=== PATIENT | male | born 1965 | race Caucasian/White ===

== ENCOUNTER 2020-09-09 10:31 | Emergency (ER) | payer OTHER ==
[~2020-09-09] VITALS: Ht 175.3 cm; Wt 104.8 kg
[2020-09-09 10:40] VITALS: BP_SYST 150
--- NOTE | 2020-09-09 10:45 | NUR ---
Patient to ER bed 7 to gown for evaluation. Side rails up. Report given to Karyna JONES.
--- NOTE | 2020-09-09 10:47 | NUR ---
Patient arrived in the ED c/o lower back pain that radiates down the leg that started 2 days ago. Patient denied any recent injury or trauma. Denied any chest pain or shortness of breath. Denied any fevers, chills, nausea or vomiting. Patient is alert and oriented x4, respirations even and unlabored, speaking in full sentences and ambulating with a steady gait. VSS, pain severity 10/10 - Taking Ibuprofen. Informed of the approximate wait time. Instructed to notify ED staff for any changes in condition or worsening of symptoms. Patient verbalized understanding.
--- NOTE | 2020-09-09 10:48 | NUR ---
pt arrives from home w/ 08/31 lower back pain x 2 wks, stabbing, and constant in nature. Pt was seen at a different ER and dc'd home w/ Ibuprofen and a muscle relaxant. pt was told that he needs to have an MRI.
--- NOTE | 2020-09-09 10:52 | NUR ---
ER Dr. Anthony at bedside examining patient.
--- NOTE | 2020-09-09 11:02 | NUR ---
Patient given written and verbal discharge instructions and verbalizes understanding. ER MD discussed with patient the results and treatment provided. Patient in stable condition. ID arm band removed. Rx of [place] given. Patient educated on pain management and to follow up with PMD. Pain Scale 3/10. Opportunity for questions provided and answered. Medication side effect fact sheet provided.
== END 2020-09-09 11:02 | disposition home or self-care (01) ==
LOC: SED 10:31
DX: M54.5 Low back pain (principal)
CPT/HCPCS: 99283